=== PATIENT | male | born 1960 | race Caucasian/White ===

== ENCOUNTER 2017-01-10 09:07 | Emergency (ER) | payer OTHER ==
[2017-01-10] MEDS ORDERED: ONDANSETRON 4 MG/2 ML VIAL IVP ONE (09:24)
[2017-01-10] MEDS ORDERED: NS 1,000 ML IV ONE (09:24)
[2017-01-10] MEDS ORDERED: HYDROmorphONE/DILAUDID 1 MG/ML INJ IVP ONE ×2 (09:24→09:50)
--- NOTE | 2017-01-10 09:26 | EDPHY ---
H & P Time Seen by Provider: 01/10/17 09:14 HPI/ROS: CHIEF COMPLAINT: Right-sided abdominal pain and flank pain HISTORY OF PRESENT ILLNESS: 56-year-old man awakened with pain at 6:00 a.m. and then much worse at 8:00 a.m.. Currently it is severe, right-sided flank pain radiating to his abdomen and his right testicle. Not positional. Associated with nausea but not vomiting or diarrhea or recent fall injury or trauma. No fever or chills. REVIEW OF SYSTEMS: Eye: no change in vision ENT: no sore throat Cardiac: no chest pain or syncope Pulmonary: no cough or SOB Abdomen: HPI Musculoskeletal: no back pain Skin: no rash Neuro: no headache Constitutional: no fever : Urinated a small amount this morning, no dysuria or hematuria. A comprehensive 10 point review of systems is otherwise negative aside from elements mentioned in the history of present illness. PAST MEDICAL HISTORY: Reflux, bowel obstructions with right hemicolectomy, prostatic hypertrophy. Social history: , here with spouse General Appearance: Alert and conversant, cooperative. Moderately uncomfortable. Eyes: No scleral icterus. ENT, Mouth: Normal mucous membranes. Respiratory: Normal respiratory effort, breath sounds equal, lungs are clear to auscultation. Cardiovascular: Regular rate and rhythm. Gastrointestinal: Abdomen is soft and non tender. Normal male . Neurological: Alert and oriented x3. Normally conversant. Face symmetric, normal movement and sensation in all extremities. Skin: Warm and dry, no rashes. Musculoskeletal: No peripheral edema and no joint swelling. Psychiatric: Hyperventilating. Emergency Department course/MDM: Dilaudid 1 mg IV, Zofran 4 mg IV. Urinalysis and noncontrast CT scanning to evaluate for renal colic 1015: CT scan per [facility] shows right-sided hydroureter and hydronephrosis with a 3 mm stone in the bladder. Results discussed with the patient at this time. He likely passed a kidney stone. Toradol 15 mg IV, primary care follow-up. He does feel better right now , relatively rapid onset of improvement of symptoms just recently. Smoking Status: Never smoked Constitutional: Initial Vital Signs Temperature (C) 36.5 C 01/10/17 09:07 Heart Rate 69 01/10/17 09:07 Respiratory Rate 17 01/10/17 09:07 Blood Pressure 155/96 H 01/10/17 09:07 O2 Sat (%) 98 01/10/17 09:07 O2 Delivery Mode Room Air Allergies/Adverse Reactions: No Known Allergies Allergy (Verified 11/04/11 23:11) Home Medications: Medication Instructions Recorded Dutasteride [Avodart 0.5 MG (RX)] 0.5 mg PO MWF 09/02/12 Ibuprofen [Motrin 200 mg (OTC)] 200 mg PO BID PRN 09/02/12 Pantoprazole Sodium [Protonix 40mg 40 mg PO BID 09/02/12 (RX)] Tadalafil [Cialis] 5 mg PO DAILY 09/02/12 Testosterone Enanthate 200 mg IM Q3D 09/02/12 [Delatestryl] Albuterol [Proventil Inhaler] 2 puffs IH Q6 PRN 06/26/13 Cholecalciferol Vit D3 [Vitamin D3 1,000 units PO DAILY 06/26/13 1000 units (OTC)] Glucosamine Sulfate [Glucosamine 500 mg PO BID 06/26/13 Sulfate 500 MG (OTC)] Multivitamins [Tab-A-Boris] 1 tab PO DAILY 06/26/13 Medical Decision Making Differential Diagnosis: Differential considered including but not limited to aortic aneurysm, renal colic, UTI, appendicitis, bowel obstruction. - Data Points Laboratory Results: Laboratory Results 01/10/17 09:22 01/10/17 09:22 01/10/17 01/10/17 09:22 09:22 WBC 6.21 10^3/uL 10^3/uL (3.80-9.50) RBC 5.78 10^6/uL 10^6/uL (4.40-6.38) Hgb 18.0 g/dL H g/dL (13.7-17.5) Hct 51.5 % H % (40.0-51.0) MCV 89.1 fL fL (81.5-99.8) MCH 31.1 pg pg (27.9-34.1) MCHC 35.0 g/dL g/dL (32.4-36.7) RDW 12.6 % % (11.5-15.2) Plt Count 267 10^3/uL 10^3/uL (150-400) MPV 9.1 fL fL (8.7-11.7) Neut % (Auto) 50.8 % % (39.3-74.2) Lymph % (Auto) 35.7 % % (15.0-45.0) [place] % (Auto) 9.2 % % (4.5-13.0) Eos % (Auto) 3.5 % % (0.6-7.6) Baso % (Auto) 0.6 % % (0.3-1.7) Nucleat RBC Rel Count 0.0 % % (0.0-0.2) Absolute Neuts (auto) 3.15 10^3/uL 10^3/uL (1.70-6.50) Absolute Lymphs (auto) 2.22 10^3/uL 10^3/uL (1.00-3.00) Absolute Monos (auto) 0.57 10^3/uL 10^3/uL (0.30-0.80) Absolute Eos (auto) 0.22 10^3/uL 10^3/uL (0.03-0.40) Absolute Basos (auto) 0.04 10^3/uL 10^3/uL (0.02-0.10) Absolute Nucleated RBC 0.00 10^3/uL 10^3/uL (0-0.01) Immature Gran % 0.2 % % (0.0-1.1) Immature Gran # 0.01 10^3/uL 10^3/uL (0.00-0.10) Sodium 141 mEq/L mEq/L (134-144) Potassium 4.3 mEq/L mEq/L (3.5-5.2) Chloride 106 mEq/L mEq/L (97-110) Carbon Dioxide 20 mEq/l L mEq/l (22-31) Anion Gap 15 mEq/L mEq/L (8-16) BUN 16 mg/dL mg/dL (7-23) Creatinine 1.2 mg/dL mg/dL (0.7-1.3) Estimated GFR > 60 Glucose 116 mg/dL H mg/dL (70-100) Calcium 10.2 mg/dL mg/dL (8.5-10.4) Medications Given: Discontinued Medications Hydromorphone HCl (Dilaudid) 1 mg IVP EDNOW ONE Stop: 01/10/17 09:25 Last Admin: 01/10/17 09:28 Dose: 1 mg Hydromorphone HCl (Dilaudid) 1 mg IVP EDNOW ONE Stop: 01/10/17 09:51 Last Admin: 01/10/17 09:53 Dose: 1 mg Sodium Chloride (Ns) 1,000 mls @ 0 mls/hr IV EDNOW ONE; Wide Open PRN Reason: Protocol Stop: 01/10/17 09:25 Last Admin: 01/10/17 09:28 Dose: 1,000 mls Ondansetron HCl (Zofran) 4 mg IVP EDNOW ONE Stop: 01/10/17 09:25 Last Admin: 01/10/17 09:28 Dose: 4 mg Departure - Departure Disposition: Home, Routine, Self-Care Clinical Impression: Renal colic on right side Condition: Good Instructions: Renal Colic (ED) Referrals: Ilan Reagan MD [Medical Doctor] - As per Instructions
[2017-01-10 09:42] LABS: % IMMATURE GRANULYOCYTES 0.2 % (0.0-1.1); ABSOLUTE IMMATURE GRANULOCYTES 0.01 10^3/uL (0.00-0.10); ADD DIFF? NO; ADD MORPH? NO; ADD SCAN? NO; ATYPICAL LYMPHOCYTE FLAG 0 (0-99); FRAGMENT RBC FLAG 0 (0-99); HEMATOCRIT 51.5 % (40.0-51.0); LEFT SHIFT FLG 0 (0-99); LIPEMIA HEMOLYSIS FLAG 90 (0-99); MEAN CELL HEMOGLOBIN 31.1 pg (27.9-34.1); MEAN CELL VOLUME 89.1 fL (81.5-99.8); MEAN PLATELET VOLUME 9.1 fL (8.7-11.7); PLATELET CLUMPS FLAG 0 (0-99); PLATELET COUNT 267 10^3/uL (150-400); RED BLOOD CELL COUNT 5.78 10^6/uL (4.40-6.38); RED CELL DISTRIBUTION WIDTH 12.6 % (11.5-15.2)
[2017-01-10 09:45] LABS: ANION GAP 15 mEq/L (8-16); CALCIUM 10.2 mg/dL (8.5-10.4); CARBON DIOXIDE 20 mEq/l (22-31); CHLORIDE 106 mEq/L (97-110); CREATININE 1.2 mg/dL (0.7-1.3); GLOMERULAR FILTRATION RATE > 60; GLUCOSE 116 mg/dL (70-100); POTASSIUM 4.3 mEq/L (3.5-5.2); SODIUM 141 mEq/L (134-144)
[2017-01-10] MEDS ORDERED: KETOROLAC 15 MG/1 ML SDV IVP ONE (10:16)
[2017-01-10 12:15] VITALS: BP 104/76; PULSE 84; RESP 17; TEMP 98.8; O2SAT 93
[2017-01-10 12:25] LABS: MUCUS TRACE /lpf (NONE-1+); RBC,URINE 50-182 /hpf (0-3)
== END 2017-01-10 11:55 | disposition home or self-care (01) ==
PROC: 3E0337Z Introduction of Electrolytic and Water Balance Substance into Peripheral Vein, Percutaneous Approach (ICD-10-PCS; principal; 2017-01-10)
DX: N23 Unspecified renal colic (principal); E86.9 Volume depletion, unspecified
CPT/HCPCS: 96374; J1170; J1885; J2405